=== PATIENT | male | born 1965 | race Caucasian/White ===

== ENCOUNTER 2016-03-26 13:00 | Emergency (ER) | payer MEDICAID ==
[2016-03-26 13:06] VITALS: BP 140/76; PULSE 97; RESP 16; TEMP 98.1; O2SAT 95
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
[2016-03-26] MEDS ORDERED: NS 1,000 ML IV ONE (15:28)
[2016-03-26] MEDS ORDERED: KETOROLAC 30 MG/1 ML SDV IVP ONE (15:28)
[2016-03-26] MEDS ORDERED: FAMOTIDINE 20 MG/NACL 50 ML IV ONE (15:28)
--- NOTE | 2016-03-26 15:43 | CPEKG ---
Heart Rate: 68 RR Interval: 882 P-R Interval: 144 QRSD Interval: 92 QT Interval: 396 QTC Interval: 422 P Baring: 39 QRS Baring: 42 T Wave Baring: 31 EKG Severity - NORMAL ECG - EKG Impression: SINUS RHYTHM Electronically Signed By: Damari Naranjo 26-Mar-2016 21:51:27
[2016-03-26 15:47] LABS: % IMMATURE GRANULYOCYTES 0.3 % (0.0-1.1); ABSOLUTE IMMATURE GRANULOCYTES 0.02 10^3/uL (0.00-0.10); ADD DIFF? NO; ADD MORPH? NO; ADD SCAN? NO; ATYPICAL LYMPHOCYTE FLAG 20 (0-99); FRAGMENT RBC FLAG 0 (0-99); HEMOGLOBIN 14.5 g/dL (13.7-17.5); LEFT SHIFT FLG 0 (0-99); LIPEMIA HEMOLYSIS FLAG 90 (0-99); MEAN CELL HEMOGLOBIN 28.9 pg (27.9-34.1); MEAN CELL HEMOGLOBIN CONCENTR. 34.5 g/dL (32.4-36.7); MEAN CELL VOLUME 83.8 fL (81.5-99.8); MEAN PLATELET VOLUME 9.7 fL (8.7-11.7); PLATELET CLUMPS FLAG 20 (0-99); PLATELET COUNT 317 10^3/uL (150-400); RED BLOOD CELL COUNT 5.01 10^6/uL (4.40-6.38); RED CELL DISTRIBUTION WIDTH 13.5 % (11.5-15.2)
[2016-03-26 15:55] LABS: ALANINE AMINOTRANSFERASE 35 IU/L (21-72); ALBUMIN 3.6 g/dL (3.5-5.0); ALKALINE PHOSPHATASE 74 IU/L (38-126); ANION GAP 11 mEq/L (8-16); ASPARTATE AMINOTRANSFERASE 19 IU/L (17-59); BILIRUBIN,TOTAL 0.6 mg/dL (0.1-1.4); BILIRUBIN-CONJUGATED 0.2 mg/dL (0.0-0.5); BILIRUBIN-UNCONJUGATED 0.4 mg/dL (0.0-1.1); CALCIUM 8.6 mg/dL (8.5-10.4); CARBON DIOXIDE 24 mEq/l (22-31); CHLORIDE 105 mEq/L (97-110); CREATININE 0.9 mg/dL (0.7-1.3); GLOMERULAR FILTRATION RATE > 60; GLUCOSE 89 mg/dL (70-100); POTASSIUM 3.6 mEq/L (3.5-5.2); SODIUM 140 mEq/L (134-144); TOTAL PROTEIN 6.8 g/dL (6.3-8.2)
[2016-03-26 16:06] LABS: TROPONIN I < 0.012 ng/mL (0-0.034)
--- NOTE | 2016-03-26 17:10 | DX ---
PA and lateral chest. March 26, 2016 Clinical History: Chest pain Comparison Study: June 04, 2015. Findings: The lungs are clear. No pleural disease identified. Heart size is normal. 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 Impression: Stable chest..
== END 2016-03-26 17:24 | disposition home or self-care (01) ==
DX: R10.84 Generalized abdominal pain (principal); R07.89 Other chest pain; F17.200 Nicotine dependence, unspecified, uncomplicated
CPT/HCPCS: 96365; J1885

== ENCOUNTER 2016-05-08 13:11 | Emergency (ER) | payer MEDICAID ==
[~2016-05-08 13:11] MED LIST: ONDANSETRON DISINTEGRATING 4 MG TAB PO SCH; metroNIDAZOLE 500 MG TAB PO SCH
[2016-05-08] MEDS ORDERED: ONDANSETRON DISINTEGRATING 4 MG TAB PO ONE (14:20)
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
[2016-05-08] MEDS ORDERED: NS 1,000 ML IV ONE (15:26)
[2016-05-08 15:34] LABS: % IMMATURE GRANULYOCYTES 0.2 % (0.0-1.1); ABSOLUTE IMMATURE GRANULOCYTES 0.01 10^3/uL (0.00-0.10); ADD DIFF? NO; ADD MORPH? NO; ADD SCAN? NO; ATYPICAL LYMPHOCYTE FLAG 30 (0-99); FRAGMENT RBC FLAG 0 (0-99); HEMATOCRIT 44.2 % (40.0-51.0); HEMOGLOBIN 15.4 g/dL (13.7-17.5); LEFT SHIFT FLG 0 (0-99); LIPEMIA HEMOLYSIS FLAG 90 (0-99); MEAN CELL HEMOGLOBIN 28.7 pg (27.9-34.1); MEAN CELL HEMOGLOBIN CONCENTR. 34.8 g/dL (32.4-36.7); MEAN CELL VOLUME 82.5 fL (81.5-99.8); MEAN PLATELET VOLUME 10.3 fL (8.7-11.7); PLATELET CLUMPS FLAG 20 (0-99); PLATELET COUNT 294 10^3/uL (150-400); RED BLOOD CELL COUNT 5.36 10^6/uL (4.40-6.38); RED CELL DISTRIBUTION WIDTH 13.5 % (11.5-15.2)
[2016-05-08 15:37] LABS: COLOR AMBER; LEUKOCYTE ESTERASE,URINE NEGATIVE (NEGATIVE); NITRITE,URINE NEGATIVE (NEGATIVE)
[2016-05-08 15:38] LABS: ANION GAP 11 mEq/L (8-16); CALCIUM 9.3 mg/dL (8.5-10.4); CARBON DIOXIDE 23 mEq/l (22-31); CHLORIDE 105 mEq/L (97-110); CREATININE 0.7 mg/dL (0.7-1.3); GLOMERULAR FILTRATION RATE > 60; GLUCOSE 110 mg/dL (70-100); SODIUM 139 mEq/L (134-144)
[2016-05-08 15:52] LABS: MUCUS 4+ /lpf (NONE-1+)
[2016-05-08 15:53] LABS: RBC,URINE NONE SEEN /hpf (0-3); WBC,URINE 0-1 /hpf (0-3)
[2016-05-08] MEDS ORDERED: ONDANSETRON 4 MG/2 ML VIAL ONE (16:16)
[2016-05-08] MEDS ORDERED: ONDANSETRON 4 MG/2 ML VIAL IVP ONE (16:19)
[2016-05-08] MEDS ORDERED: KETOROLAC 30 MG/1 ML SDV IVP ONE (16:27)
[2016-05-08] MEDS ORDERED: KETOROLAC 30 MG/1 ML SDV ONE (16:34)
[2016-05-08] MEDS ORDERED: HYDROCOD/APAP 5/325 PREPACK#6 BTL TAKEHOME ONE ×2 (17:12→17:24)
[2016-05-08 17:27] VITALS: BP 124/78; PULSE 80; RESP 14; TEMP 98.4; O2SAT 94
== END 2016-05-08 17:25 | disposition home or self-care (01) ==
DX: K57.92 Diverticulitis of intestine, part unspecified, without perforation or abscess without bleeding (principal); F17.210 Nicotine dependence, cigarettes, uncomplicated
CPT/HCPCS: 96374; J1885; J2405

== ENCOUNTER 2017-01-15 13:58 | Emergency (ER) | payer MEDICAID ==
[2017-01-15 14:05] VITALS: TEMP 97.9
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
[2017-01-15] MEDS ORDERED: ALBUTEROL 3 ML DEYVIAL IH ONE (15:34)
[2017-01-15 15:57] LABS: % IMMATURE GRANULYOCYTES 0.4 % (0.0-1.1); ABSOLUTE IMMATURE GRANULOCYTES 0.05 10^3/uL (0.00-0.10); ADD DIFF? NO; ADD MORPH? NO; ADD SCAN? NO; ATYPICAL LYMPHOCYTE FLAG 10 (0-99); FRAGMENT RBC FLAG 0 (0-99); HEMATOCRIT 41.3 % (40.0-51.0); HEMOGLOBIN 14.7 g/dL (13.7-17.5); LEFT SHIFT FLG 0 (0-99); LIPEMIA HEMOLYSIS FLAG 90 (0-99); MEAN CELL HEMOGLOBIN 29.8 pg (27.9-34.1); MEAN CELL HEMOGLOBIN CONCENTR. 35.6 g/dL (32.4-36.7); MEAN CELL VOLUME 83.8 fL (81.5-99.8); MEAN PLATELET VOLUME 9.7 fL (8.7-11.7); PLATELET CLUMPS FLAG 20 (0-99); PLATELET COUNT 274 10^3/uL (150-400); RED BLOOD CELL COUNT 4.93 10^6/uL (4.40-6.38)
[2017-01-15 16:15] LABS: ANION GAP 13 mEq/L (8-16); CALCIUM 9.3 mg/dL (8.5-10.4); CARBON DIOXIDE 20 mEq/l (22-31); CHLORIDE 106 mEq/L (97-110); CREATININE 0.8 mg/dL (0.7-1.3); GLOMERULAR FILTRATION RATE > 60; GLUCOSE 95 mg/dL (70-100); POTASSIUM 4.2 mEq/L (3.5-5.2); SODIUM 139 mEq/L (134-144)
[2017-01-15 16:31] LABS: COLOR YELLOW; LEUKOCYTE ESTERASE,URINE NEGATIVE (NEGATIVE); NITRITE,URINE NEGATIVE (NEGATIVE)
[2017-01-15 16:41] LABS: MUCUS TRACE /lpf (NONE-1+)
[2017-01-15 16:51] VITALS: BP 156/80; PULSE 95; RESP 16; O2SAT 96
== END 2017-01-15 17:10 | disposition home or self-care (01) ==
DX: J98.01 Acute bronchospasm (principal); J06.9 Acute upper respiratory infection, unspecified; B34.9 Viral infection, unspecified; R10.9 Unspecified abdominal pain; I10 Essential (primary) hypertension; F17.200 Nicotine dependence, unspecified, uncomplicated